=== PATIENT | female | born 1980 | race Hispanic/Latino ===

== ENCOUNTER 2021-08-12 12:28 | Emergency (ER) | payer BC ==
[~2021-08-12] VITALS: Ht 160 cm; Wt 97.5 kg
[2021-08-12] MEDS ORDERED: IBUPROFEN 600 MG TABLET PO ONE (13:00)
[2021-08-12] MEDS ORDERED: ACETAMINOPHEN 500 MG TABLET PO ONE (13:00)
[2021-08-12] MEDS ORDERED: PSEU120T62 PO (13:42)
[2021-08-12] MEDS ORDERED: IBUP-2070 PO (13:42)
[2021-08-12] MEDS ORDERED: ACET-3194 PO (13:42)
[2021-08-12] MEDS ORDERED: ALBU8.5H8 IH (13:42)
[2021-08-12 14:54] VITALS: BP 122/82
== END 2021-08-12 15:15 | disposition home or self-care (01) ==
LOC: EDH 12:28
DX: U07.1 COVID-19 (principal); Z98.890 Other specified postprocedural states; Z79.899 Other long term (current) drug therapy
CPT/HCPCS: 87635; 87804 ×2; 99283; C9803

== ENCOUNTER 2024-06-26 20:51 | Emergency (ER) | payer BC ==
[~2024-06-26] VITALS: Ht 160 cm; Wt 90.7 kg
[~2024-06-26 20:51] MED LIST: ACET-3194 PO; ALBU8.5H8 IH; IBUP-2070 PO; PSEU120T62 PO
[2024-06-26 20:56] VITALS: BP 133/64; PULSE 84; RESP 16; TEMP 98; O2SAT 100
[2024-06-26] MEDS: CIPROFLOXACIN HCL 0.2%/HYDROCORT 1% 10 ML OTIC SUSP OTIC ONE (21:13)
[2024-06-26] MEDS ORDERED: CIPOTIC AD (21:20)
--- NOTE | 2024-06-26 21:20 | ERN ---
General Chief Complaint: Foreignbody Ear Stated Complaint: F/O LEFT EAR Time Seen by MD: 20:52 Time Seen by Midlevel: 20:52 Source: patient History of Present Illness Initial Comments Patient is a 43-year-old female presenting to the emergency department with left ear pain. Patient states that last night she had a bug into her left ear moves able to remove it after several hours. Today she reports developing pain to the area. Denies any fever, chills, or any other symptoms at this time. Allergies: Coded Allergies: No Known Allergies (Unverified Allergy, Unknown, 08/12/21) Home Meds Active Scripts Ciprofloxacin HCl/Hc (Cipro Hc Otic Susp) 0.2 %-1 % Otsus, 3 DROP AD BID for 7 Days, #10 ML 0 Refills Prov:CONOR QURESHI 06/26/24 Albuterol Sulfate (Proair Hfa) 8.5 Gm Hfa.aer.ad, 2 INHALER IH Q4H for 5 Days, #1 INHALER Prov:CARRINGTON STRICKLAND 08/12/21 Pseudoephedrine HCl (Sudafed 12 Hour) 120 Mg Tablet.er, 120 MG PO BID for 5 Days, #10 TAB Prov:CARRINGTON STRICKLAND 08/12/21 Acetaminophen (Acetaminophen) 650 Mg Tablet.er, 650 MG PO Q4H for 5 Days, #15 TAB Prov:CARRINGTON STRICKLAND 08/12/21 Ibuprofen (Ibuprofen) 600 Mg Tablet, 600 MG PO Q6H PRN for PAIN for 5 Days, #15 TAB Prov:CARRINGTON STRICKLAND 08/12/21 Past Medical History Past Medical History: No Pertinent History Past Surgical History: Social History Social History: Negative ROS Dictation CONSTITUTIONAL: Negative except for HPI HEAD/FACE: Negative except for HPI EENT: Negative except for HPI RESPIRATORY: Negative except for HPI GASTROINTESTINAL/ABDOMINAL: Negative except for HPI GENITOURINARY: Negative except for HPI MUSCULOSKELETAL: Negative except for HPI INTEGUMENTARY: Negative except for HPI NEUROLOGICAL/PSYCH: Negative except for HPI HEMATOLOGIC/LYMPHATIC: Negative except for HPI All Systems Negative, Except as noted above. 13 point review of systems assessed and all negative except for above. Physical Exam Physical Exam Dictation PHYSICAL EXAM: GENERAL: alert,, awake oriented x 3 HEENT: EOMI, Sclera non icteric, moist mucosa, mild erythema to the left external ear canal, tympanic membrane is intact with no evidence of infection NECK: Supple, no JVD, trachea midline LUNGS: Clear breath sounds bilaterally. No wheezes HEART: Regular rate and rhythm. Normal S1 and S2, without murmurs ABD: Abdomen soft, nontender. Bowel sounds present EXT: No clubbing or cyanosis, NEURO: Alert and oriented to person, follows commands MDM MDM: Patient is a 43-year-old female presenting to the emergency department with left ear pain. Patient states that last night she had a bug into her left ear moves able to remove it after several hours. Today she reports developing pain to the area. Denies any fever, chills, or any other symptoms at this time. On physical examination patient is in no acute distress. Her ENT examination is remarkable for erythema to the left ear canal, tympanic membrane is visualized bilaterally and there are no evidence of infection. Given that patient had a insect to the left ear I will go ahead and administer otic ciprofloxacin to prevent a secondary infection. Patient was given prescription and was advised to follow up PCP in 2-3 days. Return precautions discussed Differential diagnosis: Ear foreign body, otitis media, otitis externa There are no social concerns with this patient. Prescription drug management Prescriptions will include: Ciprofloxacin otic Medical management and examination interpretation discussions were had by w ith other qualified healthcare professionals as indicated for the patient's care. ED Course Orders Procedure Category Date Status Time Ciprofloxacin Hcl/Hc PHA 06/26/24 Complete (Cipro Hc Otic Susp 21:30 Current Medications Medications (Trade) Dose Ordered Sig/Yordy Route PRN Reason Start Time Stop Time Status Last Admin Dose Admin Ciprofloxacin/ Hydrocortisone (Cipro Hc Otic Susp) 1 DROP ONCE ONCE OTIC 06/26/24 21:30 06/26/24 21:27 DC 06/26/24 21:13 Vital Signs Date Time Temp Pulse Resp B/P (MAP) Pulse Ox O2 Delivery O2 Flow Rate FiO2 06/26/24 20:56 98.1 84 16 133/64 100 Room Air* 0 21 06/26/24 20:52 98.1 84 16 133/64 100 Room Air DX & DISP Disposition: Discharge Departure Impression: Primary Impression: Otitis externa Condition: Stable Scripts Ciprofloxacin HCl/Hc (Cipro Hc Otic Susp) 0.2 %-1 % Otsus 3 DROP AD BID for 7 Days, #10 ML 0 Refills Prov: CONOR QURESHI 06/26/24 Additional Instructions: I have given you a prescription for Cipro eardrops to prevent an ear infection given that he had a foreign body in your ear yesterday. Follow up with the PCP in 2-3 days for repeat evaluation. Referrals: SELF,REFERRAL (PCP) Time of Disposition: 21:19 I have reviewed the case, and I agree with, Diagnosis and Plan I performed the substantive portion of the visit. I have reviewed and personally made and approve the management plan that is documented in the note by myself or the ANA. I acknowledge for responsibility for the patient's management plan. CONOR QURESHI Jun 26, 2024 21:20
== END 2024-06-26 21:26 | disposition home or self-care (01) ==
LOC: EDH 20:51
DX: H60.92 Unspecified otitis externa, left ear (principal); Z79.899 Other long term (current) drug therapy; Z98.890 Other specified postprocedural states
CPT/HCPCS: 99283